=== PATIENT | male | born 1945 | race Caucasian/White ===

== ENCOUNTER → 2017-11-25 10:06 | Day surgery (SDC) | payer MEDICARE, SELFPAY | PROVIDERS: Visit Provider Ophthalmology ==

== ENCOUNTER → 2017-12-09 09:25 | Day surgery (SDC) | payer MEDICARE, SELFPAY ==
[2017-12-09 10:25] VITALS: BP 118/87; PULSE 65; RESP 16; TEMP 36.1; O2SAT 96; BMI 29.7
--- NOTE | 2017-12-09 12:18 | PM.PREOP ---
Pre-operative Note Interval Note Pre-op Check: History & Physical Reviewed
[2017-12-09] MEDS: PHENYLEPHRINE/LIDOCAINE 3ML VIAL (OR) EYE-OP (12:24)
[2017-12-09] MEDS: MOXIFLOXACIN OPHTH DROPS 3 ML BOTTLE 2 DROPS INJ (12:25)
[2017-12-09] MEDS: TRIAMCINOLONE 50 MG/5 ML VIAL INJ (12:25)
[2017-12-09] MEDS: CHONDROIDTIN/SOD HYALURONATE 1.05 ML SYRINGE INTRAOCULA (12:25)
[2017-12-09] MEDS: BALANCED SALT IRRIG SOLN NO.2 500 ML, EPINEPHrine 1 MG IRR (12:26)
[2017-12-09] MEDS: TETRACAINE 0.5% OPHTH DROPS 15 ML 2 DROPS EYE-RIGHT (12:27)
[2017-12-09] MEDS: LIDOCAINE JELLY 2% 5 ML 1 APPLIC TOP (12:27)
--- NOTE | 2017-12-09 12:37 | PM.OP.1 ---
Operative Date/Time/Diagnoses - Pre-op diagnosis: Cataract Left eye Post-op diagnosis: same Procedure & Clinicians Procedure: Cataract surgery left eye Same procedure as scheduled: Yes Surgeon: Yovany Diallo Anesthesia Type: Other (Topical) Operative Notes Procedure in detail: Patient brought to the operating suite. Tetracaine drops placed in the left eye. Patient was prepped and draped in sterile manner. Wire lid speculum was placed in the eye. Betadine drops were placed on the eye. This was irrigated. Lidocaine jelly was placed on the eye. A paracentesis port was created with a side-port blade. 2 mL lidocaine phenylephrine was injected into the anterior chamber. The anterior chamber was deepened with viscoelastic. 2.65 mm keratome was used to create a temporal clear corneal incision. Cystotome and Utrata forceps were used to create continuous tear capsulorrhexis. Balanced salt solution was used to hydro dissect the nucleus. The phacoemulsification handpiece was inserted and the nucleus was removed using the stop and chop technique. The irrigation aspiration handpiece was inserted and the remaining cortex was removed. Anterior chamber was deepened with viscoelastic. An Zheng ZCB00 intraocular lens with a power of 16.0 was injected into the capsular bag. Irrigation aspiration handpiece was inserted and the remaining viscoelastic was removed. Incision was hydrated with balanced salt solution and found to be leak free with pressure with Weck-Natacha sponges. 0.1 mL Vigamox injected anterior chamber. 0.3 mL Kenalog 10 mg was injected subconjunctivally. Lid speculum was removed. The patient left the operating room in excellent condition. Complications: none Condition: stable Disposition: same day surgery
[2017-12-09 12:39] VITALS: BP 151/99; PULSE 65; RESP 16; TEMP 36.2; O2SAT 96
== END ==
PROVIDERS: Visit Provider Ophthalmology
DX: H25.11 Age-related nuclear cataract, right eye (principal)
CPT/HCPCS: J0171; J2250; J3010; J3301

== ENCOUNTER 2017-12-30 10:47 | Day surgery (SDC) | payer MEDICARE, SELFPAY ==
[2017-12-30 12:04] VITALS: BMI 30.2
[2017-12-30 12:11] VITALS: BP 137/86; RESP 16; TEMP 36.4; O2SAT 95
[2017-12-30] MEDS: PROPARACAINE 0.5% OPHTH SOL 2 DROPS EYE-OP (12:30)
[2017-12-30] MEDS: CATARACT EYE COMPOUND (10 DROPS/SYRINGE) 3 DROPS EYE-OP (12:35)
--- NOTE | 2017-12-30 13:38 | PM.PREOP ---
Pre-operative Note Interval Note Pre-op Check: History & Physical Reviewed by Physician
--- NOTE | 2017-12-30 13:52 | SUR.OPER ---
Supine on eye stretcher, head on extension cradle secured with tape. Arms tucked at sides with blanket. Pillow under knees.
[2017-12-30] MEDS: CHONDROIDTIN/SOD HYALURONATE 1.05 ML SYRINGE INTRAOCULA (13:57)
[2017-12-30] MEDS: MOXIFLOXACIN OPHTH DROPS 3 ML BOTTLE 2 DROPS INJ (13:57)
[2017-12-30] MEDS: LIDOCAINE JELLY 2% 5 ML 1 APPLIC TOP (13:58)
[2017-12-30] MEDS: TETRACAINE 0.5% OPHTH DROPS 15 ML 2 DROPS EYE-LEFT (13:58)
[2017-12-30] MEDS: PHENYLEPHRINE/LIDOCAINE 3ML VIAL (OR) EYE-OP (13:58)
[2017-12-30] MEDS: TRIAMCINOLONE 50 MG/5 ML VIAL INJ (13:58)
[2017-12-30] MEDS: BALANCED SALT IRRIG SOLN NO.2 500 ML, EPINEPHrine 1 MG IRR (13:58)
--- NOTE | 2017-12-30 14:05 | PM.OP.1 ---
Operative Date/Time/Diagnoses - Pre-op diagnosis: Cataract Left eye Post-op diagnosis: same Procedure & Clinicians Surgeon: Yovany Diallo Anesthesia Type: MAC +/- and Sedation Operative Notes Procedure in detail: Patient brought to the operating suite. Tetracaine drops placed in the left eye. Marking instrument was used to paulie verticle and horizontal meridian. Patient was prepped and draped in sterile manner. Wire lid speculum was placed in the eye. Marking instrument was used to paulie 75 degree meridian. Betadine drops were placed on the eye. This was irrigated. Lidocaine jelly was placed on the eye. A paracentesis port was created with a side-port blade. 0.1 mL 1% preservative free lidocaine was injected into the anterior chamber. The anterior chamber was deepened with viscoelastic. 2.6 mm keratome was used to create a temporal clear corneal incision. Cystotome and Utrata forceps were used to create continuous tear capsulorrhexis. Balanced salt solution was used to hydro dissect the nucleus. The phacoemulsification handpiece was inserted and the nucleus was removed using the stop and chop technique. The irrigation aspiration handpiece was inserted and the remaining cortex was removed. Anterior chamber was deepened with viscoelastic. An Zheng [id number] intraocular lens with a power of 15.5 was injected into the capsular bag. Irrigation aspiration handpiece was inserted and the remaining viscoelastic was removed. The lens was rotated to the 75 degree meridian. Incision was hydrated with balanced salt solution and found to be leak free with pressure with Weck-Natacha sponges. 0.1 mL Vigamox injected anterior chamber. 0.3 mL Kenalog 10 mg was injected subconjunctivally. Lid speculum was removed. The patient left the operating room in excellent condition. Complications: none Condition: stable Disposition: same day surgery
[2017-12-30 14:14] VITALS: BP 137/83; PULSE 71; TEMP 36.6; O2SAT 93
[2017-12-30 14:23] VITALS: BP 125/83; PULSE 79; O2SAT 94
== END 2017-12-30 15:00 | disposition home or self-care (01) ==
PROVIDERS: Visit Provider Ophthalmology
DX: H25.12 Age-related nuclear cataract, left eye (principal)
CPT/HCPCS: J0171; J2250; J3010; J3301; V2787